=== PATIENT | male | born 1955 | race Asian ===

== ENCOUNTER 2019-05-18 11:33 | Emergency (ER) | payer SELFPAY ==
[~2019-05-18] VITALS: Ht 172.7 cm; Wt 97.7 kg
[2019-05-18 14:40] VITALS: BP 134/65
== END 2019-05-18 14:42 | disposition home or self-care (01) ==
LOC: EMS 11:38
DX: S16.1XXA Strain of muscle, fascia and tendon at neck level, initial encounter (principal); S70.02XA Contusion of left hip, initial encounter; S09.90XA Unspecified injury of head, initial encounter; V49.40XA Driver injured in collision with unspecified motor vehicles in traffic accident, initial encounter; Y93.89 Activity, other specified; Y92.89 Other specified places as the place of occurrence of the external cause; Y99.8 Other external cause status
CPT/HCPCS: 70450; 72125; 73503